=== PATIENT | female | born 1965 | race Caucasian/White ===

== ENCOUNTER 2018-09-14 15:26 | Emergency (ER) | payer BC, OTHER ==
[~2018-09-14] VITALS: Ht 154.9 cm; Wt 46.7 kg
[~2018-09-14 15:26] MED LIST: HYDROCODONE-APA1 TA1 PO; NOHOMEMEDICATIONS; NORCO 5-325 TA1 EACH PO
[2018-09-14] MEDS ORDERED: AUGMENTIN 875-1 EACH PO (17:38)
[2018-09-14] MEDS ORDERED: CENTANY30 GM TOP (17:38)
[2018-09-14] MEDS ORDERED: IBUPROFEN 600600 M1 PO (17:38)
[2018-09-14] MEDS ORDERED: NORCO 5-325 TA1 EAC1 PO (17:38)
[2018-09-14 17:57] VITALS: BP 184/101
== END 2018-09-14 17:57 | disposition home or self-care (01) ==
LOC: M.ERS 15:26
DX: S51.011A Laceration without foreign body of right elbow, initial encounter (principal); S81.011A Laceration without foreign body, right knee, initial encounter; Z98.890 Other specified postprocedural states; Z90.710 Acquired absence of both cervix and uterus; V29.49XA Motorcycle driver injured in collision with other motor vehicles in traffic accident, initial encounter; Y93.55 Activity, bike riding; Y92.89 Other specified places as the place of occurrence of the external cause; Y99.8 Other external cause status

== ENCOUNTER 2018-09-17 16:40 | Emergency (ER) | payer BC ==
[~2018-09-17] VITALS: Ht 157.5 cm; Wt 45.4 kg
[~2018-09-17 16:40] MED LIST changes: +AUGMENTIN 875-1 EACH PO; +CENTANY30 GM TOP; +IBUPROFEN 600600 M1 PO; +NORCO 5-325 TA1 EAC1 PO
[2018-09-17 17:45] LABS: ABSOLUTE LYMPHOCYTES 0.8 thou/uL (0.8-5.3); ABSOLUTE MONOCYTES 0.3 thou/uL (0.0-1.2); ABSOLUTE NEUTROPHILS 5.2 thou/uL (1.6-8.1); BASOPHILS 0.3 %; EOSINOPHILS 0.1 %; HEMATOCRIT 39.2 % (37.0-47.0); HEMOGLOBIN 13.6 gm/dL (12.0-15.0); LYMPHOCYTES 12.3 %; MCH 33.8 pg (26.0-34.0); MCHC 34.8 g/dL (28.0-37.0); MCV 97.2 fL (80.0-100.0); NUCLEATED RBCS 0 /100WBC; PLATELET COUNT* 130 thou/uL (150-400); POLYS 82.3 %; RBC 4.03 mil/uL (4.20-5.00); RDW-CV 13.3 % (10.5-14.5); WBC 6.3 thou/uL (4.0-11.0)
[2018-09-17 17:59] LABS: CALCIUM 9.8 mg/dL (8.5-10.1); CREATININE 0.7 mg/dL (0.6-1.3); POTASSIUM 3.3 mmol/L (3.5-5.1)
[2018-09-17 18:03] LABS: ALBUMIN 3.3 g/dL (3.4-5.0); TOTAL BILIRUBIN 0.7 mg/dL (<0.1-1.0); TOTAL PROTEIN 7.8 g/dL (6.4-8.2)
[2018-09-17] MEDS ORDERED: BACTRIM DS TAB1 EACH PO (20:19)
[2018-09-17] MEDS ORDERED: NORCO 5-325 TA1 EAC1 PO (20:21)
[2018-09-17] MEDS ORDERED: IBUPROFEN 600600 M1 PO (20:21)
[2018-09-17 20:38] VITALS: BP 136/82
== END 2018-09-17 20:38 | disposition home or self-care (01) ==
LOC: M.ERS 16:40
PROVIDERS: Nurse Practitioner Family
DX: Z48.00 Encounter for change or removal of nonsurgical wound dressing (principal)